=== PATIENT | male | born 1975 | race Caucasian/White ===

== ENCOUNTER 2024-12-06 12:18 | Inpatient (IN) ==
[2024-12-06] MEDS ORDERED: LOMOTIL PO PRN (12:42)
[2024-12-06] MEDS: NS 1,000 ML IV 1,000 ML IV ONE (13:47)
[2024-12-06 14:12] LABS: BASOPHILS % (AUTO) 0 % (0.2-1.0); EOSINOPHILS % (AUTO) 0.2 % (0.9-2.9); LYMPHOCYTES # (AUTO) 0 X10^3/uL (1.3-2.9); LYMPHOCYTES % (AUTO) 23.3 % (21.0-51.0); MEAN CORPUSCULAR HEMOGLOBIN 24.6 pg (27.0-34.0); MEAN CORPUSCULAR HGB CONC 34.9 g/dL (33.0-35.0); MEAN CORPUSCULAR VOLUME 70.5 fL (80.0-100.0); MEAN PLATELET VOLUME 10.8 fL (7.4-11.0); MONOCYTES # (AUTO) 0 x10^3/uL (0.3-0.8); NEUTROPHILS # (AUTO) 0.1 x10^3/uL (2.2-4.8); NEUTROPHILS % (AUTO) 65.5 % (42.0-75.0); RED BLOOD COUNT 2.41 X10^6/uL (4.7-6.0); RED CELL DISTRIBUTION WIDTH 15.6 % (11.6-16.5)
[2024-12-06 14:18] LABS: HEMOGLOBIN 5.9 g/dL (13.5-18.0); PLATELET COUNT 8 X10^3/uL (150.0-450.0); WHITE BLOOD COUNT 0.2 X10^3/uL (3.6-10.0)
[2024-12-06 14:24] LABS: ALBUMIN 1.7 g/dL (3.4-5.0); CALCIUM 8.3 mg/dL (8.5-10.1); CARBON DIOXIDE 20.7 mmol/L (21-32); COR CA(FOR HYPOALB) 10.1 mg/dL (8.5-10.1); CREATININE 5.26 mg/dL (0.70-1.30); POTASSIUM 3.3 mmol/L (3.5-5.1); TOTAL PROTEIN 6.5 g/dL (6.4-8.2)
[2024-12-06 14:29] VITALS: BMI 28.7
[2024-12-06 14:31] LABS: HYPOCHROMASIA SLIGHT; PLATELET MORPHOLOGY COMMENT NORMAL (NORMAL)
[2024-12-06 14:32] LABS: BURR CELLS SLIGHT
[2024-12-06] MEDS: NS 1,000 ML IV 1,000 ML IV SCH ×2 (15:26→18:26)
[2024-12-06] MEDS: PERCOCET TAB 5/325 MG PO PRN (15:27)
[2024-12-06] MEDS ORDERED: NS 250 ML IV 25 ML IV PRN (18:16)
[2024-12-06] MEDS: NS 250 ML IV 250 ML IV ONE ×2 (18:25→21:43)
[2024-12-06] MEDS: SOLU-Cortef INJ IVP SCH (19:46)
[2024-12-06] MEDS: ASCORBIC ACID INJ MULTI-DOSE VIAL 3,000 MG in NS 50 ML IV 50 ML IV SCH (19:47)
[2024-12-06] MEDS: THIAMINE HCL INJ IVP SCH (20:06)
[2024-12-06] MEDS: BENADRYL INJ 50 MG VIAL IVP PRN (21:28)
[2024-12-06] MEDS: TYLENOL 325 MG TAB PO PRN (21:28)
[2024-12-06] MEDS: TYLENOL 325 MG TAB PO ONE (21:43)
[2024-12-06] MEDS: ZOSYN VIAL 3.375 GRAMS 3.375 G in NS 100 ML IV 100 ML IV SCH (22:17)
[2024-12-06 23:12] LABS: HEMOGLOBIN 6.4 g/dL (13.5-18.0)
[2024-12-06 23:13] LABS: HEMATOCRIT 18.1 % (42.0-54.0)
[2024-12-07 02:45] LABS: HEMATOCRIT 19.6 % (42.0-54.0); HEMOGLOBIN 6.8 g/dL (13.5-18.0)
[2024-12-07 05:12] LABS: BASOPHILS % (AUTO) 0 % (0.2-1.0); LYMPHOCYTES # (AUTO) 0 X10^3/uL (1.3-2.9); MEAN CORPUSCULAR HGB CONC 34.6 g/dL (33.0-35.0); MONOCYTES # (AUTO) 0.1 x10^3/uL (0.3-0.8); NEUTROPHILS # (AUTO) 0 x10^3/uL (2.2-4.8)
[2024-12-07 05:20] LABS: MEAN CORPUSCULAR HEMOGLOBIN 26.4 pg (27.0-34.0); MEAN CORPUSCULAR VOLUME 76.5 fL (80.0-100.0)
[2024-12-07 05:21] LABS: ALANINE AMINOTRANSFERASE 19 Units/L (12-78); ALBUMIN 1.3 g/dL (3.4-5.0); ALKALINE PHOSPHATASE 58 Units/L (46-116); ASPARTATE AMINO TRANSFERASE 39 Units/L (15-37); BLOOD UREA NITROGEN 49 mg/dL (7-18); CALCIUM 7.1 mg/dL (8.5-10.1); CHLORIDE 92 mmol/L (98-107); COR CA(FOR HYPOALB) 9.3 mg/dL (8.5-10.1); CREATININE 6.64 mg/dL (0.70-1.30); EOSINOPHILS % (AUTO) 1.3 % (0.9-2.9); GLUCOSE 82 mg/dL (65-99); HEMATOCRIT 21.9 % (42.0-54.0); HEMOGLOBIN 7.6 g/dL (13.5-18.0); LYMPHOCYTES % (AUTO) 19.9 % (21.0-51.0); MEAN PLATELET VOLUME 9.6 fL (7.4-11.0); MONOCYTES % (AUTO) 60.8 % (0.0-13.0); POTASSIUM 3.4 mmol/L (3.5-5.1); RED BLOOD COUNT 2.86 X10^6/uL (4.7-6.0); SODIUM 130 mmol/L (136-145); TOTAL PROTEIN 5.2 g/dL (6.4-8.2); eGFR NON BLACK RACES 9 (>60)
[2024-12-07 05:29] LABS: WHITE BLOOD COUNT 0.1 X10^3/uL (3.6-10.0)
[2024-12-07 05:30] LABS: PLATELET COUNT 11 X10^3/uL (150.0-450.0)
[2024-12-07 06:17] LABS: HYPOCHROMASIA SLIGHT; PLATELET MORPHOLOGY COMMENT NORMAL (NORMAL)
[2024-12-07 06:18] LABS: ANISOCYTOSIS SLIGHT; BURR CELLS PRESENT; MICROCYTOSIS SLIGHT; OVALOCYTES PRESENT; SCHISTOCYTES PRESENT
[2024-12-07 08:16] VITALS: RESP 26; TEMP 98.4
[2024-12-07 08:17] VITALS: BP 77/59; PULSE 132; O2SAT 97
[2024-12-07] MEDS: ADRENALINE CHL INJ (ABBOJECT) IVP ONE (08:25)
== END 2024-12-07 10:20 | disposition expired | DRG 722 ==
LOC: ICU → OBSVTOIN 12:24
PROVIDERS: ADMIT Obstetrics & Gynecology Obstetrics; ATTEND Obstetrics & Gynecology Obstetrics
DX: E86.0 Dehydration; R19.7 Diarrhea, unspecified; R79.89 Other specified abnormal findings of blood chemistry; Z16.11 Resistance to penicillins; C62.90 Malignant neoplasm of unspecified testis, unspecified whether descended or undescended; C78.00 Secondary malignant neoplasm of unspecified lung; B96.89 Other specified bacterial agents as the cause of diseases classified elsewhere; R00.0 Tachycardia, unspecified; I46.9 Cardiac arrest, cause unspecified; I95.1 Orthostatic hypotension; A41.59 Other Gram-negative sepsis; E87.1 Hypo-osmolality and hyponatremia; D69.6 Thrombocytopenia, unspecified; Z16.29 Resistance to other single specified antibiotic; D64.89 Other specified anemias; E87.6 Hypokalemia; C78.7 Secondary malignant neoplasm of liver and intrahepatic bile duct